=== PATIENT | female | born 1980 | race Caucasian/White ===

== ENCOUNTER 2022-11-18 18:17 | Emergency (ER) | payer SELFPAY ==
[2022-11-18 18:35] VITALS: BP 112/67; PULSE 104; RESP 18; TEMP 37.3; O2SAT 98
[2022-11-18 20:03] LABS: Appearance Urine Clear (Clear); Bilirubin Urine Negative (Negative); Blood Urine 2+ (Negative); Color Urine Yellow (Yellow); Glucose Urine UA Negative (Negative); Ketones Urine Negative (Negative); Leukocyte Esterase Ur 3+ LEU/UL (Negative); Nitrate Urine Negative (Negative); Protein Urine 2+ mg/dL (Negative); Urobilinogen Urine 0.2 mg/dL (<2.0)
[2022-11-18 20:04] LABS: Add Urine Microscopic? YES
== END 2022-11-18 23:52 | disposition left against medical advice (07) ==
LOC: ANHED 23:29
PROVIDERS: Emergency Provider Preventive Medicine Aerospace Medicine; PCP Family Medicine
DX: R10.9 Unspecified abdominal pain (principal)
CPT/HCPCS: 81001; 87077; 87086; 87088; 87186; 99199

== ENCOUNTER 2023-05-20 20:13 | Emergency (ER) | payer OTHER, SELFPAY ==
[2023-05-20 20:20] VITALS: BP 142/92; PULSE 85; TEMP 36.6; O2SAT 100
--- NOTE | 2023-05-20 20:31 | ED.GENADULT ---
HPI - General Adult General Chief complaint: Wound/Laceration Stated complaint: cyst Time Seen by Provider: 05/20/23 20:19 Source: patient Mode of arrival: ambulatory Limitations: no limitations History of Present Illness HPI narrative: 43 years old white female presents with a cyst on the left labia internally started few days ago. She denies any fever, chills, nausea, vomiting or rash. Related Data Home Medications Medication Instructions Recorded Confirmed alprazolam 0.5 mg tablet (Xanax) 0.5 mg PO DAILY 05/20/23 05/20/23 duloxetine 60 mg capsule,delayed 60 mg PO DAILY 05/20/23 05/20/23 release (Cymbalta) gabapentin 800 mg tablet 800 mg PO DAILY 05/20/23 05/20/23 (Neurontin) Allergies Allergy/AdvReac Type Severity Reaction Status Date / Time cephalexin Allergy Unknown Unknown Verified 05/20/23 20:46 codeine Allergy Unknown Unknown Verified 05/20/23 20:46 meperidine Allergy Unknown Unknown Verified 05/20/23 20:46 Review of Systems Review of Systems: All systems reviewed & are unremarkable except as noted in HPI and below Exam Narrative: General appearance: Well-developed, well-nourished Skin: Normal color Chest and respiratory: Airway patent, no respiratory distress, no accessory muscle use Heart: Regular rate/rhythm Abdomen: Soft, nontender, no organomegaly, quiet bowel sounds , vaginal exam showed the 1 cm x 1 cm cyst on the left labia internally consistent with Bartholin's cyst, no erythema, no drainage, tender, tense Neurologic: Alert and oriented ?3, Course Reevaluation(s) Reevaluation #1: feeling much better after the procedure Date: 05/20/23 Time: 21:26 Vital Signs Vital signs: Vital Signs Temperature 36.6 C 05/20/23 20:20 Pulse Rate 85 05/20/23 20:20 Blood Pressure 142/92 H 05/20/23 20:20 Pulse Oximetry 100 05/20/23 20:20 Oxygen Delivery Room Air 05/20/23 20:20 Temperature 36.6 C 05/20/23 20:20 Pulse Rate 85 05/20/23 20:20 Blood Pressure 142/92 H 05/20/23 20:20 Pulse Oximetry 100 05/20/23 20:20 Oxygen Delivery Room Air 05/20/23 20:20 Procedures Abscess I/D bartholin's gland: Date of Incision: 05/20/23 Time of Incision: 21:23 Side (if applicable): right Sedation/analgesia: none Local Anesthetic: lidocaine 1% and with epi Amount of anesthesia used (mL): 3 Technique: incised with #11 blade Amount of fluid expressed (mL): 4 Irrigation: No Packing used?: none and Word catheter ( word catheter is not available in this ER) I&D Results: Pus and Blood Complications: other ( patient tolerated the procedure well) Medical Decision Making Medical Records Medical records reviewed: Yes I reviewed the external patient's medical records. Vital Signs Vital Signs: Vital Signs Temperature 36.6 C 05/20/23 20:20 Pulse Rate 85 05/20/23 20:20 Blood Pressure 142/92 H 05/20/23 20:20 Pulse Oximetry 100 05/20/23 20:20 Oxygen Delivery Room Air 05/20/23 20:20 Temperature 36.6 C 05/20/23 20:20 Pulse Rate 85 05/20/23 20:20 Blood Pressure 142/92 H 05/20/23 20:20 Pulse Oximetry 100 05/20/23 20:20 Oxygen Delivery Room Air 05/20/23 20:20 Critical Care Time Critical Care Time Critical Care Time: No Discharge Plan Discharge Clinical Impression: Abscess Patient Disposition: Home, Self-Care Condition: Improved Instructions: Antibiotic Form, Bartholin Cyst (ED) Additional Instructions: Return if symptoms are worsening , call Dr. Shannon for appointment, take Tylenol as as needed for aches and pain, continue home medications. Prescriptions: New clind
[2023-05-20] MEDS: CLINDAMYCIN HCL 150 MG CAP 300 MG PO (21:29)
[2023-05-20 21:34] VITALS: BP 136/88; PULSE 80; RESP 18; O2SAT 98
--- NOTE | 2023-05-26 14:18 | PC.NURSE ---
final blood culture report reviewed. skin angelina growth only. no change in plan of care.
--- NOTE | 2023-05-27 13:07 | PC.NURSE ---
FINAL ANAEROBIC CULTURE RESULTS: ORGANISM 1 PREVOTELLA SPECIES GRAM STAIN:MODERATE WHITE BLOOD CELLS SEEN NO ORGANISMS SEEN ISOLATE 1 : LIGHT GROWTH OF PREVOTELLA SPECIES FINAL AEROBIC CULTURE RESUTLS: GROWTH OF SKIN NABOR. NO CHANGE IN TX NEEDED PER C&S AND DR COBIAN
== END 2023-05-20 21:36 | disposition home or self-care (01) ==
PROVIDERS: Emergency Provider Emergency Medicine; PCP Family Medicine
DX: N75.1 Abscess of Bartholin's gland (principal); Z79.899 Other long term (current) drug therapy
CPT/HCPCS: 56420; 87070; 87075; 87147; 87205; 99283; A9270

== ENCOUNTER 2024-12-19 11:32 | Emergency (ER) | payer OTHER, SELFPAY ==
--- NOTE | ~2024-12-19 | CT_ITS ---
CT of the Abdomen and Pelvis: Indication: Vaginal pain Technique: 2.5 mm axial scans were obtained through the abdomen and pelvis following intravenous adm inistration of 100 cc of Omnipaque 350. Dose reduction technique was used on this scan by utilizing a utomated exposure control and iterative reconstruction technique. The dose-length product (DLP) was 1 61.46 mGy-cm. Findings: Scans through the lung bases are unremarkable. The liver, spleen, pancreas, adrenals and kidneys are within normal limits. Cholecystectomy clips are present. There are atherosclerotic calcifications of the aorta. No lymphadenopathy. Questionable mild diffuse large bowel wall thickening. No bowel obstruction. No abscess or free air. Images through the pelvis were performed. Questionable mild urinary bladder wall thickening versus un derdistention. Questionable hysterectomy versus retroverted uterus.. Impression: Suggestion of mild diffuse infectious/inflammatory colitis. Possible hysterectomy versus retroverted uterus. No definite abnormal pelvic mass evident. Reviewed, dictated and finalized at [facility]. Impression: Suggestion of mild diffuse infectious/inflammatory colitis. Possible hysterectomy versus retroverted uterus. No definite abnormal pelvic ma ss evident.
[2024-12-19 11:33] VITALS: BP 156/81; PULSE 104; RESP 16; TEMP 36.8; O2SAT 94
--- OUTSIDE RECORDS SUMMARY | 2024-12-19 11:35 | XMS_ITS ---
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 Initial Psych Eval. * Medical History: Objective: * Vitals: Assessment: Plan: * Treatment: * * This progress note has not b een verified nor is it considered complete until locked and signed by the provider. Sign off status: Pending * Provider: Fabricio PONCE MD Date: 0 02/06/2024 Generated for Marquis leonard/Lawrence/Elviaitting on: 12/19/2024 12:35 PM EDT
--- OUTSIDE RECORDS SUMMARY | 2024-12-19 11:35 | XMS_ITS ---
Author Organization [facility] Paula huffman Billing Info Address [address] [place], [place] [id number] Care Team Providers Care Shank Scourer Name Role Phone LORRAINE PONCE Unavailable [phone] REASON FOR VISIT Follow up Encounters Encounter Location Date [id number] [address] [place] [phone] 02/07/2024 LORRAINE PONCE Plan Of Treatment No Information Progress Notes * LOPEZBrent GILiDOB:1980 (44 yo F)Acc No.[id number]:02/07/2024 PROGRESS NOTE Patient: Luisa NEWSOME Provider: Fabricio PONCE MD :1980 A ge:43 Y S ex:Female Date:02/07/2024 Address:[address] [place], [place] [id number] Subjective: * Chief Complaints: * 1 . Follow up. * Medical History: Objective: * Vitals: Assessment: Plan: * Treatment: * * This progress note has not b een verified nor is it considered complete until locked and signed by the provider. Sign off status: Pending * Provider: Fabricio PONCE MD Date: 0 02/07/2024 Generated for Ashi aisha/Lawrence/Elviaitting on: 0 12/19/2024 12:34 PM EDT
--- OUTSIDE RECORDS SUMMARY | 2024-12-19 11:35 | XMS_ITS ---
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 [address] [place] [phone] 02/08/2024 LORRAINE PONCE Plan Of Treatment No Information Progress Notes * Brent LOPEZiDOB:1980 (44 yo F)Acc No.[id number]:02/08/2024 PROGRESS NOTE Patient: Luisa NEWSOME Provider: Fabricio PONCE MD :1980 A ge:43 Y S ex:Female Date:02/08/2024 Address:[address] [place], [place] [phone] Subjective: * Chief Complaints: * 1 . Follow up. * Medical History: Objective: * Vitals: Assessment: Plan: * Treatment: * * This progress note has not b een verified nor is it considered complete until locked and signed by the provider. Sign off status: Pending * Provider: Fabricio PONCE MD Date: 0 02/08/2024 Generated for Ashi aisha/Lawrence/Elviaitting on: 0 12/19/2024 12:34 PM EDT
--- OUTSIDE RECORDS SUMMARY | 2024-12-19 11:35 | XMS_ITS | Patient Health Record ---
Author Organization [facility] Paula huffman Billing Info Address [address] [place] [id number] Care Team Providers Care Tierce Filler Name Role Phone VISCARL MENDOSAHAL Unavailable [phone] Reason For Referral No Information Encounters Encounter Location Date Provider Diagnosis [id number] [address] [place] [address], [place] [phone] 02/06/2024 LORRAINE VISWAM [id number] [address] [place], [place] [address]E [facility] [address] 02/07/2024 LORRAINE VISWAM [id number] [address] [place], [place] [address] [facility] [address] 02/08/2024 LORRAINE VISWAM Plan Of Treatment No Information
--- NOTE | 2024-12-19 11:39 | ED.FEMALEGU ---
HPI - Female Genitourinary General Chief complaint: Urogenital-Female Stated complaint: vaginal pain Time Seen by Provider: 12/19/24 11:38 Source: patient Mode of arrival: ambulatory Limitations: no limitations History of Present Illness HPI Narrative: patient is a 44-year-old female with a vaginal fullness for the past week. She examined herself and said that it is a bold inside appearing to come from the cranial aspect of the vagina. She has had hysterectomy. She has history of recurrent kidney stones. She has history of recurrent UTIs. She went to urgent care this past week for similar symptoms and she was found to have UTI and she is pending to get her antibiotics at the store. She is having some frequency and urgency. There was some vaginal blood noted to her which is not normal per her hysterectomy. One vaginal . MD elicited complaint: UTI, vaginal bleeding, pelvic pain and back pain Pertinent past history: recurrent UTIs, hysterectomy and other ( recurrent kidney stones) Onset (ago): week(s) ( 1) Location of symptoms: low back and other ( intravaginal) Severity: moderate Female Urogenital Radiation: Non-Radiating Severity scale (1-10): 4 Quality of pain: cramping and sharp Consistency: constant Vaginal discharge: none Vaginal bleeding: scant Urinary symptoms: Urgency and Frequency Exacerbating factors: none Relieving factors: none Associated symptoms: denies other symptoms Treatment prior to arrival: none Sexual activity: Yes Patient : No Related Data Home Medications ?Medication ?Instructions ?Recorded ?Confirmed ?Last Taken ?Type gabapentin 800 mg tablet 800 mg PO QID 05/20/23 05/20/23 Unknown History (Neurontin) Allergies Allergy/AdvReac Type Severity Reaction Status Date / Time cephalexin Allergy Unknown Unknown Verified 12/19/24 11:40 codeine Allergy Unknown Unknown Verified 12/19/24 11:40 meperidine Allergy Unknown Unknown Verified 12/19/24 11:40 Review of Systems Review of Systems: All systems reviewed & are unremarkable except as noted in HPI and below Constitutional: Constitutional: Reports no additional constitutional complaints Eyes: Eyes: Reports no additional eye complaints ENT: Reports system reviewed and no additional complaints, except as documented Cardiovascular: Cardiovascular: Reports no additional cardiovascular complaints Respiratory: Respiratory: Reports no additional respiratory complaints Gastrointestinal: Gastrointestinal: Reports no additional gastrointestinal complaints Genitourinary: Genitourinary: Reports no additional female genitourinary complaints Musculoskeletal: Musculoskeletal: Reports no additional musculoskeletal complaints Integumentary/Breasts: Skin/Breast: Reports system reviewed and no additional complaints, except as docu Neurologic: Reports system reviewed and no additional complaints, except as documented Psychiatric: Psychiatric: Reports no additional psychiatric complaints Endocrine: Endocrine: Reports no additional endocrine complaints Hematologic/Lymphatic: Hematologic/Lymphatic: Reports no additional hematologic/lymphatic complaints Allergic/Immunologic: Allergic/Immunologic: Reports no additional allergic/immunologic complaints Exam Const: General: healthy appearing Nutritional Appearance: well nourished Orientation/consciousness: patient oriented x3 HENMT: Head: normal to inspection Ears: external ears normal Face/Nose/Sinus: Normal external nose present Eyes: Conjunctivae: conjunctivae normal Pupils: Equal, round and reactive pupils present EOM: EOMs intact bilaterally Neck: Neck: normal visual inspection Chest: Chest palpation & inspection: normal inspection of the chest Resp: Effort & Inspection: normal respiratory effort and not labored Auscultation: clear to auscultation bilaterally and no crackles Cardio: Rate: regular rate Rhythm: regular rhythm Heart sounds: no murmurs GI: Inspection: non-distended GI Palp: Yes Soft to palpation and No Tenderness to palpation present (GI) Auscultation: normal bowel sounds : General: Yes bladder normal to palpation External Female Exam: normal external appearance Speculum Exam - Vagina: normal appearance of the vagina and normal vaginal discharge Other: Attempt to place vaginal speculum was unable to be done due to pain of firm tissue protruding into the vagina from superiorly aspect of the vagina; I further attempted to do manual examination without success due to pain at the introitus where the bulge is appreciated; no bleeding appreciated (exam done with female wastewater superintendent [place] entire visit) Back/Spine/Pelvis: Back: no CVA tenderness Skin: General skin exam: normal color Rashes: no rashes Wounds: no wounds Neuro: General: patient oriented x3 Cranial nerves: Yes Nystagmus not present Speech: normal speech Extrem: General: normal to inspection Psych: Appearance: grossly normal Mental Status: mental status grossly normal Affect: Anxious affect present ( expected with nature of complaint) Attitude: cooperative Course Vital Signs Vital signs: Vital Signs Temperature 36.8 C 12/19/24 11:33 Pulse Rate 104 H 12/19/24 11:33 Respiratory Rate 16 12/19/24 11:33 Blood Pressure 156/81 H 12/19/24 11:33 Pulse Oximetry 94 12/19/24 11:33 Oxygen Delivery Room Air 12/19/24 11:33 Temperature 36.8 C 12/19/24 11:33 Pulse Rate 104 H 12/19/24 11:33 Respiratory Rate 16 12/19/24 11:33 Blood Pressure 156/81 H 12/19/24 11:33 Pulse Oximetry 94 12/19/24 11:33 Oxygen Delivery Room Air 12/19/24 11:33 MDM - Female Genitourinary MDM Narrative Medical decision making narrative: patient is a 44-year-old female with some intravaginal pains and fullness sensation. We will do a vaginal exam. Female wastewater superintendent present during entire exam. vaginal exam unable to be completed due to pain. We will give her pain medication. Will do CT scan and labs. Lab Data Attestation: I reviewed the patient's lab results. 12/19/24 12:20 12/19/24 12:20 Labs: Lab Results 12/19/24 12/19/24 Range/Units 12:20 12:21 WBC 10.8 (4.8-10.8) K/mm3 RBC 4.70 (4.20-5.40) M/mm3 Hgb 15.9 H (12.0-15.0) g/dL Hct 47.7 (35.0-49.0) % MCV 101.5 (78.0-102.0) fL MCH 33.8 H (27.0-31.0) pg MCHC 33.3 (32-36) g/dL RDW 12.8 (11.6-14.4) % Plt Count 197 (150-420) K/mm3 MPV 10.9 (9.2-11.8) fl Immature Gran % (Auto) 0.6 H (0.0-0.0) % Neut % (Auto) 73.3 H (50.0-70.0) % Lymph % (Auto) 20.1 (18.0-42.0) % [place] % (Auto) 3.5 (2.0-11.0) % Eos % (Auto) 2.2 (1.0-6.0) % Baso % (Auto) 0.3 (0.0-1.0) % Lymph # (Auto) 2.18 (1.10-4.50) K/mm3 [place] # (Auto) 0.38 (0.10-0.90) K/mm3 Eos # (Auto) 0.24 (0.02-0.50) K/mm3 Baso # (Auto) 0.03 (0.00-0.10) K/mm3 Abs Immat Gran (auto) 0.07 H (0.00-0.00) K/mm3 Absolute Neuts (auto) 7.92 H (1.70-7.20) K/mm3 Absolute Nucleated RBC 0.00 (0.00-0.00) K/mm3 Nucleated RBC % 0.0 (0-0.0) % PT 10.9 (9.50-12.1) Seconds INR 1.0 APTT 25.6 (23.9-30.70) Sec Sodium 136 L (137-145) mmol/L Potassium 3.7 (3.4-5.0) mmol/L Chloride 108 H (98-107) mmol/L Carbon Dioxide 27 (22-30) mmol/L Anion Gap 1 L (4-12) mmol/L BUN 6 L (7-17) mg/dL Creatinine 0.69 L (0.7-1.0) mg/dL Estim Creat Clear Calc 66 ml/min Estimated GFR > 60 (59 - ) Glucose 95 (65-110) mg/dL Calculated Osmolality 279 L (285-295) mOsm/kg Calcium 8.9 (8.4-10.2) mg/dL Total Bilirubin 0.8 (0.2-1.3) mg/dL AST 108 H (14-36) U/L ALT 206 H (6-35) U/L Alkaline Phosphatase 91 (38-126) U/L Total Protein 6.9 (6.3-8.2) g/dL Albumin 4.0 (3.5-5.1) g/dL Urine Color Light yellow (Yellow) Urine Appearance Clear (Clear) Urine pH 6.0 (5.0-8.0) Ur Specific [place] 1.020 (1.010-1.020) Urine Protein Trace H (Negative) Urine Glucose (UA) Negative (Negative) Urine Ketones Negative (Negative) Ur Blood (Man) 2+ H (Negative) Urine Nitrate Negative (Negative) Urine Bilirubin Negative (Negative) Urine Urobilinogen 0.2 (0.2-1.0) mg/dL Leukocyte Esterase Rfl 2+ H (Negative) ALISSA/UL Urine RBC 11-20 H (0-2) /hpf Urine WBC 10-15 H (0-3) /hpf Urine WBC Clumps Present H (None) /hpf Ur Squamous Epith Cells Moderate H (Few) /hpf Urine Bacteria 4+ H (None) /hpf C. trachomatis (PCR) Pending N. gonorrhoeae (PCR) Pending Imaging Data Attestation: I personally reviewed and interpreted this imaging study as follows: My impression: patient has UTI and that explains the changes of the bladder patient has ulcerative colitis and that explains mild colitis changes and she is asymptomatic at this time I called the radiologist to review the vaginal area specifically and he said there is no cystocele or any other kind of abnormality related to the possibility of a incarcerated tissue; further he said the vaginal wall appears thickened and likely some localized tissue inflammation is noted such as a vaginitis; we did review she had a hysterectomy I explained to the patient we will call with gonorrhea and chlamydia results this week if positive and treat accordingly Radiologist's impression: CT scan of the abdomen and pelvis with contrast shows Impression: Suggestion of mild diffuse infectious/inflammatory colitis. Possible hysterectomy versus retroverted uterus. No definite abnormal pelvic mass evident. Discharge Plan Discharge Clinical Impression: Urinary tract infection Qualifiers: Urinary tract infection type: acute cystitis Hematuria presence: with hematuria Qualified Code(s): N30.01 - Acute cystitis with hematuria Vaginitis Qualifiers: Chronicity: acute Qualified Code(s): N76.0 - Acute vaginitis Patient Disposition: Home Condition: Stable Instructions: Antibiotic Form, Urinary Tract Infection in Women (ED) Patient Language: Palauan Prescriptions: New ciprofloxacin HCl [Cipro] 500 mg tablet 500 mg PO BID 7 Days Qty: 14 0RF hydrocodone-acetaminophen 5-325 mg tablet 1 tablet PO Q8H PRN (Reason: pain) Qty: 20 0RF fluconazole 150 mg tablet 150 mg PO ONCE Qty: 1 0RF No Action gabapentin [Neurontin] 800 mg tablet 800 mg PO QID Follow-up/Referrals: Osito,MD Emil [Primary Care Provider] - Time of Disposition: 13:49
[2024-12-19] MEDS: HYDROcodone/acetaminophen (*CRX) 10-325 MG TABLET 1 TAB PO (12:10)
[2024-12-19 12:23] LABS: Basophils Absolute Auto 0.03 K/mm3 (0.00-0.10); Basophils Percent Auto 0.3 % (0.0-1.0); Eosinophils Absolute Auto 0.24 K/mm3 (0.02-0.50); Eosinophils Percent Auto 2.2 % (1.0-6.0); Hematocrit 47.7 % (35.0-49.0); Hemoglobin 15.9 g/dL (12.0-15.0); Immature Granulocyte Absolute 0.07 K/mm3 (0.00-0.00); Immature Granulocyte Percent A 0.6 % (0.0-0.0); Lymphocytes Absolute Auto 2.18 K/mm3 (1.10-4.50); Lymphocytes Percent Auto 20.1 % (18.0-42.0); Mean Corpuscular HGB Conc 33.3 g/dL (32-36); Mean Corpuscular Hemoglobin 33.8 pg (27.0-31.0); Mean Corpuscular Volume 101.5 fL (78.0-102.0); Mean Platelet Volume 10.9 fl (9.2-11.8); Monocytes Absolute Auto 0.38 K/mm3 (0.10-0.90); Monocytes Percent Auto 3.5 % (2.0-11.0); Neutrophils Absolute Auto 7.92 K/mm3 (1.70-7.20); Neutrophils Percent Auto 73.3 % (50.0-70.0); Platelet Count Result 197 K/mm3 (150-420); Red Cell Distribution Width 12.8 % (11.6-14.4); White Blood Count 10.8 K/mm3 (4.8-10.8)
[2024-12-19 12:32] LABS: Add Urine Microscopic? YES; Appearance Urine Clear (Clear); Bilirubin Urine Negative (Negative); Blood Urine 2+ (Negative); Color Urine Light Yellow (Yellow); Glucose Urine UA Negative (Negative); Ketones Urine Negative (Negative); Leukocyte Esterase Ur 2+ LEU/UL (Negative); Nitrate Urine Negative (Negative); Protein Urine Trace (Negative); Urobilinogen Urine 0.2 mg/dL (0.2-1.0)
[2024-12-19 12:34] LABS: Alanine Aminotransferase 206 U/L (6-35); Alkaline Phosphatase 91 U/L (38-126); Anion Gap 1 mmol/L (4-12); Aspartate Amino Transferase 108 U/L (14-36); Bilirubin,Total 0.8 mg/dL (0.2-1.3); Blood Urea Nitrogen 6 mg/dL (7-17); Calcium 8.9 mg/dL (8.4-10.2); Carbon Dioxide 27 mmol/L (22-30); Chloride 108 mmol/L (98-107); Estimated CRCL calculation 66 ml/min; Estimated Glomerular Filt Rate > 60; Glucose 95 mg/dL (65-110); Osmolality Calculated 279 mOsm/kg (285-295); Potassium 3.7 mmol/L (3.4-5.0); Sodium 136 mmol/L (137-145); Total Protein 6.9 g/dL (6.3-8.2)
[2024-12-19 12:37] LABS: Partial Thromboplastin Time 25.6 Sec (23.9-30.70); Prothrombin Time 10.9 Seconds (9.50-12.1)
[2024-12-19 12:40] LABS: Bacteria Urine 4+ /hpf; Squamous Epithelial Cell Urine Moderate /hpf (Few); WBC Clumps Urine Present /hpf
[2024-12-19 14:00] VITALS: BP 174/85; PULSE 83; RESP 20; TEMP 37; O2SAT 98
--- NOTE | 2024-12-20 13:16 | PC.NURSE ---
urine culture preliminary ecoli noted.
[2024-12-20 20:07] LABS: Chlamydia trachomatis NOT DETECTED (NOT DETECTE); Neisseria gonorrhoeae PCR NOT DETECTED (NOT DETECTE)
--- NOTE | 2024-12-22 15:20 | PC.NURSE ---
urine culture final, e-coli. pt rx cipro. no changes needed per dr meneses.
== END 2024-12-19 14:01 | disposition home or self-care (01) ==
PROVIDERS: Emergency Provider Emergency Medicine; PCP Family Medicine
DX: N76.0 Acute vaginitis (principal); N30.01 Acute cystitis with hematuria; Z90.710 Acquired absence of both cervix and uterus; Z11.3 Encounter for screening for infections with a predominantly sexual mode of transmission
CPT/HCPCS: 36415; 74177; 80053; 81001; 85025; 85610; 85730; 87086; 87186; 87491; 87591; 99284; A9270; Q9967